=== PATIENT | male | born 2000 | race Caucasian/White ===

== ENCOUNTER 2018-08-28 15:12 | Emergency (ER) | payer OTHER ==
[2018-08-28 15:17] VITALS: BP 127/74
--- NOTE | 2018-08-28 17:00 | ED ---
Lower Extremity - HPI Summary HPI Summary: 18 year old male presents with left knee injury today. He states he twisted his left knee. He states he previously injured his left knee a couple weeks ago while snowboarding. He states he reinjured it today. States it feels like it coming give out. He has been using crutches to get around. pain is severe when tries to place weight on the area. He states that he has no numbness or tingling. He denies any previous fracture area. No ankle pain. No medical conditions. 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 - History of Current Complaint Chief Complaint: EDExtremityLower Stated Complaint: LT KNEE INJURY Time Seen by Provider: 08/28/18 16:28 Pain Intensity: 8 - Allergies/Home Medications Allergies/Adverse Reactions: Allergies Allergy/AdvReac Type Severity Reaction Status Date / Time No Known Allergies Allergy Verified 08/28/18 15:15 PMH/Surg Hx/FS Hx/Imm Hx Endocrine/Hematology History: Denies: Hx Anticoagulant Therapy Respiratory History: Denies: Hx Asthma Infectious Disease History: No Infectious Disease History: Denies: Traveled Outside the [place] in Last 30 Days - Family History Known Family History: Positive: Non-Contributory - Social History Substance Use Type: Reports: None Smoking Status (MU): Never Smoked Tobacco Review of Systems Negative: Fever Negative: Chest Pain Negative: Shortness Of Breath Positive: Myalgia - left knee pain All Other Systems Reviewed And Are Negative: Yes Physical Exam Triage Information Reviewed: Yes Vital Signs On Initial Exam: Initial Vitals Temp Pulse Resp BP Pulse Ox 97.4 F 99 16 127/74 96 08/28/18 15:15 08/28/18 15:15 08/28/18 15:15 08/28/18 15:15 08/28/18 15:15 Vital Signs Reviewed: Yes Appearance: Positive: Well-Appearing Skin: Positive: Warm, Dry Head/Face: Positive: Normal Head/Face Inspection Eyes: Positive: Normal, Conjunctiva Clear ENT: Positive: Pharynx normal Respiratory/Lung Sounds: Positive: Clear to Auscultation, Breath Sounds Present Cardiovascular: Positive: Normal, RRR Musculoskeletal: Positive: Limited @ - left knee, Other - neg anterior drawer, tenderness over medial aspect of knee, good pulses, neg ballotment, sensation grossly intact Neurological: Positive: Normal Psychiatric: Positive: Normal Diagnostics - Vital Signs Vital Signs Temp Pulse Resp BP Pulse Ox 08/28/18 15:15 97.4 F 99 16 127/74 96 - Laboratory Lab Statement: Any lab studies that have been ordered have been reviewed, and results considered in the medical decision making process. - Radiology knee Radiology Interpretation Completed By: Radiologist Summary of Radiographic Findings: IMPRESSION: No fracture of left knee is noted. Intramedullary carlos is in place. Lower Extremity Course/Dx - Course Course Of Treatment: 18 year old male presents with left knee injury today. He states he twisted his left knee. He states he previously injured his left knee a couple weeks ago while snowboarding. He states he reinjured it today. States it feels like it coming give out. He has been using crutches to get around. pain is severe when tries to place weight on the area. He states that he has no numbness or tingling. He denies any previous fracture area. No ankle pain. No medical conditions. On exam tenderness over the medial aspect of left knee. Neurovascular intact. X-ray normal. Gave the knee immobilizer as needed for comfort. Told to follow-up with orthopedic no improvement. Patient understands agrees plan. - Diagnoses Differential Diagnosis/HQI/PQRI: Positive: Fracture (Closed), Sprain, Strain Provider Diagnoses: Left knee pain Discharge - Sign-Out/Discharge Documenting (check all that apply): Patient Departure - Discharge Plan Condition: Good Disposition: HOME Patient Education Materials: Knee Pain (ED) Referrals: No Primary Care Phys,NOPCP [Primary Care Provider] - Whitney Granados MD [Medical Doctor] - Additional Instructions: Use immobilizer as needed Ice, elevate, Ibuprofen or Tylenol every 6 hours for pain Follow up with ortho if no improvement Return to ED if develop or any new or worsening symptoms - Billing Disposition and Condition Condition: GOOD Disposition: Home
== END 2018-08-28 17:22 | disposition home or self-care (01) ==
LOC: ED 15:12
DX: M25.562 Pain in left knee (principal); X50.0XXA Overexertion from strenuous movement or load, initial encounter; Y92.9 Unspecified place or not applicable
CPT/HCPCS: 99282

== ENCOUNTER 2018-11-19 05:43 | Day surgery (SDC) | payer OTHER ==
[~2018-11-19 05:43] MED LIST: Buffered Lidocaine 1% SYRIN* 1 ML/SYRINGE INTRADERM ONE; Lactated Ringers 1000 ML Bag* 1,000 ML IV SCH
[2018-11-19] MEDS ORDERED: Buffered Lidocaine 1% SYRIN* 1 ML/SYRINGE INTRADERM ONE (06:40)
[2018-11-19] MEDS ORDERED: ceFAZolin 2 GM in NS PREMIX(*) 2 GM/100 ML BAG IVPB ONE (06:40)
[2018-11-19] MEDS ORDERED: EPINEPHRINE 1 MG/ML 1 ML VIAL ONE (06:53)
[2018-11-19] MEDS ORDERED: Bupivacaine 0.5%* 50 ML VIAL ONE (06:53)
[2018-11-19] MEDS ORDERED: Midazolam* 1 MG/ML 2 ML VIAL (2 MG) ONE (07:28)
[2018-11-19] MEDS ORDERED: fentaNYL* 50 MCG/ML 2 ML VIAL (100 MCG VIAL) ONE ×4 (07:28→11:33)
[2018-11-19] MEDS ORDERED: Propofol* 10 MG/ML 20 ML BTL ONE (07:55)
[2018-11-19] MEDS ORDERED: Ondansetron INJ* 2 MG/ML VIAL ONE (07:55)
[2018-11-19] MEDS ORDERED: Dexamethasone IV* 4 MG/ML 1 ML (4 MG) ONE (07:55)
[2018-11-19] MEDS ORDERED: Lidocaine 2% PF * 5 ML VIAL ONE (07:55)
[2018-11-19] MEDS ORDERED: HYDROcodone/ACETAMIN 5-325 MG* 1 TAB PO PRN (08:33)
[2018-11-19] MEDS ORDERED: Naloxone* 0.4 MG/ML 1 ML VIAL IV PRN (08:33)
[2018-11-19] MEDS ORDERED: Acetaminophen TAB* 325 MG PO PRN (08:33)
[2018-11-19] MEDS ORDERED: PROCHLORPERAZINE INJ 5 MG/ML 2 ML VIAL IV PRN (08:33)
[2018-11-19] MEDS ORDERED: Ketorolac INJ* 30 MG/ML 1 ML VIAL IV PRN (08:33)
[2018-11-19] MEDS ORDERED: Phenylephrine 40 MCG/ML SYRINGE ONE (09:23)
[2018-11-19] MEDS ORDERED: Ketorolac INJ* 30 MG/ML 1 ML VIAL ONE (11:33)
[2018-11-19] MEDS ORDERED: HYDROmorphone INJ1* 1 MG/ML SYRINGE ONE (11:33)
[2018-11-19] MEDS ORDERED: HYDROcodone/ACETAMIN 5-325 MG* 1 TAB ONE (11:33)
[2018-11-19] MEDS: HYDROmorphone INJ1* 1 MG/ML SYRINGE IV PRN ×3 (11:37→12:07)
[2018-11-19] MEDS: fentaNYL* 50 MCG/ML 2 ML VIAL (100 MCG VIAL) IV PRN ×3 (11:37→12:07)
[2018-11-19 13:32] VITALS: BP 134/78
--- NOTE | 2018-11-20 08:03 | OP ---
OPERATIVE REPORT: DATE OF OPERATION: 11/19/18 DATE OF : 89 SURGEON: Dr. Daniel Rush. RN ANTE PARTUM: DANA Wilson. A physician advertising sales assistant was required for the length of procedure for help with positioning, instrumenta tion, retraction, knee manipulation, and closure. ANESTHESIOLOGIST: Dr. Toña Rosen. ANESTHESIA: General anesthesia. PRE-OP DIAGNOSES: 1. Left knee anterior cruciate ligament tear. 2. Left knee lateral meniscus tear. POST-OP DIAGNOSES: 1. Left knee anterior cruciate ligament tear. 2. Left knee lateral meniscus tear. OPERATIVE PROCEDURES: 1. Left knee arthroscopic ACL reconstruction with bone patellar bone autograft. 2. Left knee arthroscopic lateral meniscal repair using all-inside fixation. ANTIBIOTICS: Ancef 2 g IV. TOURNIQUET TIME: 134 minutes at 300 mmHg, left thigh tourniquet. Note that there was a 14-minute dr op of the tourniquet midway through this. SKIN TO SKIN TIME: 175 minutes. SPECIMEN: None. IMPLANTS: [employer] CYRUS biocomposite screws 9 x 23 mm. Two of these were used, one in the tibia and one in the femur. [employer] FAST-FIX 360 devices x2 used in the lateral meniscus. One conta iner of 5 cc of cancellous allograft bone chips were also utilized to fill in defects in the patella and tibial tubercle post harvest. IV FLUIDS: 2100 cc crystalloid. COMPLICATIONS: None. ESTIMATED BLOOD LOSS: Minimal. INDICATIONS FOR PROCEDURE: The patient is a 18-year-old man, is a college student, from [place], who injured his left knee first on 08/19/18 and then in October 2018. The patient then came and saw me in clinic after having had an MRI done in [place]. MRI showed ACL and lateral meniscus tears. His exam was consistent with this. We booked him for surgery. The patient went to physical therapy preoperat ively. We spoke about postoperative recovery at length. The patient's father came into town to help him recover for the first week postoperatively. Discussed risks and potential complications of surgery. DESCRIPTION OF PROCEDURE: In preoperative holding, the patient signed a written consent. Operative extremity was marked in preoperative holding. I discussed the use of cancellous allograft chips to b ackfill bony defects created with autograft harvest. The patient was taken back to the operating room, placed supine on operating room table. Sedated and intubated. Hair was shaved from the left knee. Tourniquet was placed about the proximal left thigh. The left l ower extremity was prepped and draped. Surgical time-out was performed. Esmarch applied, tourniquet elevated. A lateral post had been applied to the table prior to prep and drape. I made an anterolateral knee arthroscopy portal. Started diagnostic arthroscopy. There was some syno vitis anteriorly. Medial compartment showed no articular cartilage damage or meniscal tear. Patello femoral compartment showed no articular cartilage damage. Moved to the intercondylar notch, where AC L was clearly full- thickness torn proximally. Moved to the lateral compartment. Lateral compartmen t opened up slightly more than average. I suspect this was secondary to the patient's increased liga mentous laxity in general. The patient had a negative dial test and no posterolateral LCL injury not ed on imaging. I noted a tear in the lateral meniscus. It was not displaced, inside the substance o f the meniscus, oblique in shape. Meniscus was not significantly unstable. There was no clear tear at the meniscocapsular junction; however, there was a little bit of tearing close to the popliteal hi atus, which was a very small area of tear and there was the oblique tear within the substance. So, I was worried about the whole posterior horn being somewhat at risk. I decided to fix this tear in th e meniscus and to stabilize that lateral meniscus posterior horn. I next placed two FAST-FIX 360 all-inside suture device stitches in the posterior horn of the lateral meniscus. The first I placed from the medial portal, anteromedial portal that had been established earlier under direct visualization. I placed the second through the anterolateral portal. I probed t he meniscus and it was very stable. We next put together the [facility] Knee Positioner system. I converted the knee to 90 degrees of flexi on. I made an anterior midline longitudinal skin incision. Dissected down to paratenon. Incised vega t longitudinally. Reflected that off the patellar tendon. I used a double blade 10 mm knife to cut the middle third of the patellar tendon. Of note, prior to t hat, I measured the patellar tendon to be at least 38 mm in width. I then took my bone blocks using a small oscillating saw. The length of the proximal bone block through the patella was about 25 mm. Distally, the bone block was somewhere between 36 and 38 mm. The patellar tendon was closed with buried [id number] stitches using Ethibond 0 suture. The fransisca rniquet was then dropped. The tourniquet was dropped for a total of 14 minutes, I was told by an ass istant. On the back table, I prepped the graft. I removed fat. I contoured each of the bone blocks. I adiel ected bone removed from the bone blocks. I placed 1 hole through the proximal bone block and 2 throu gh the distal bone block. I placed FiberWire #5 stitches, one in the proximal bone block and 2 in th e distal bone block. I kept that graft under tension. I returned to the knee. I replaced the Esmarch and re-elevated the tourniquet. I returned to the in tercondylar notch. I removed stump of ACL. I did a small notchplasty given that the patient's inter condylar notch was rather capacious already. I identified the proximal posterior extent of the artic ular cartilage and marked that with Bovie or vapor device. Through a newly placed anteromedial knee arthroscopy portal, I used an awl to aleah the 1:30 clock position. Then, with the knee in approximately 110 degrees of flexion, I used the 1:30 clock position, but more importantly, the proximal edge of the posterior articular cartilage to determine the correct tunnel site. I used an 8 mm around the back guide and placed a Beath pin. I confirmed excellent position o f the Beath pin and overdrilled it with a 10 mm acorn reamer. I drilled to a depth of approximately 30 mm. I removed drill and Beath pin, shaved up detritus. I then returned to the tibia. I debrided some more ACL. I used an ACL guide set to 55 degrees. I p laced my pin central, from medial to lateral and at the posterior edge of the anterior horn of the la teral meniscus. It looked like a good position versus the PCL as well. Placed pin and then overdril led it with a 10 mm reamer. I removed pin and reamer. I placed passing stitch and then placed my graft. With the graft in place, I placed a nitinol wire a nd then taps and then a screw into the femur; screw was 9 x 23 mm CYRUS. The fit was extremely tig ht. The squeak could be heard from across the room or into the next room. Fully extended the knee. I placed a screw in the tibia with a posterior drawer applied to the knee. This also squeaked. I performed anterior drawer and Ankur maneuvers and there is 0 laxity. I also scoped the knee and found the graft to be well positioned around a variety of knee flexion angles. I exited the knee. I dropped the tourniquet. The tibial bone block was proud distally. This sometimes happens when I use a long tibial bone block such as this that was approximately 38 mm long. Something like 16 x 18 mm were exposed proud of the screw. I debrided this, moved it out with a rongeur and with the arthroscopic nataly. There was stil l at least 20 mm of bone block in contact with the CYRUS screws and a backup fixation was required. Irrigation. Closed arthroscopy portals with [id number] stitches using Vicryl 2.0 suture. I closed the parate non with simple and then running stitches using Vicryl 0 suture. Closed the subcutaneous tissue with buried simple stitches using Vicryl 2.0 suture. I closed the long longitudinal skin incision with a r unning stitch using nylon 3.0 suture. I closed the arthroscopy portals made at the start of the case with figure- of-eight stitches using nylon 3.0 suture. I closed the poke hole about the lateral dis asif thigh also with a simple skin stitch. Xeroform, 4x4s, ABD, sterile Webril. Then, an Fred bandage from foot to proximal thigh. Cooling unit . Knee brace. The patient was awakened, extubated, and brought to the PACU. DISPOSITION: The patient was given Percocet as needed for pain control, Keflex for 3 days for infect ion prophylaxis, and aspirin for 2 weeks for DVT prophylaxis. He will start physical therapy immedia tely. He will be nonweightbearing with crutches because of the meniscus repair. He will see me in 1 0 to 14 days postoperatively. A knee brace is locked in full extension. [id number]/[facility] #: [id number]
== END 2018-11-19 18:14 | disposition home or self-care (01) ==
LOC: OR 05:43
PROVIDERS: ATTEND Orthopaedic Surgery
DX: S83.512D Sprain of anterior cruciate ligament of left knee, subsequent encounter (principal); S83.282A Other tear of lateral meniscus, current injury, left knee, initial encounter; X50.1XXA Overexertion from prolonged static or awkward postures, initial encounter; Y93.23 Activity, snow (alpine) (downhill) skiing, snowboarding, sledding, tobogganing and snow tubing; Y92.838 Other recreation area as the place of occurrence of the external cause
CPT/HCPCS: C1776; J0690; J1100; J1170; J1885; J2250; J2405; J2704; J3010

== ENCOUNTER 2018-11-22 11:37 | Emergency (ER) | payer OTHER ==
--- OUTSIDE RECORDS SUMMARY | 2018-11-22 12:04 | XMS REPORT | Continuity of Care Document ---
:2000 External Reference #:[id number] Author Name Anabell Viramontes Care Team Providers Name Role Phone Patient's Choice Primary Care Physician Unavailable Payers Date Identification Numbers Payment Provider Subscriber Policy Number: [id number] [facility] Blake Franco PayID: [id number] [address] [place] [address] Advance Directives Description No Information Available Problems Description No Information Family History Description No Information Available Social History Type Date Description Comments Sex Unknown Lives With Roommate Occupation Student ETOH Use Never used alcohol Tobacco Use Start: Unknown Patient has never smoked Smoking Status Reviewed: 11/04/18 Patient has never smoked Exercise Type/Frequency Exercises regularly Allergies, Adverse Reactions, Alerts Description No Known Drug Allergies Medications Description No Active Medications Immunizations Description No Information Available Vital Signs Date Vital Result Comment 11/04/2018 9:02am Height 70.0 inches 5'10" Weight 167.00 lb BP Systolic 118 mmHg BP Diastolic 82 mmHg Pain Level 0 BMI (Body Mass Index) 24.0 kg/m2 10/28/2018 3:32pm Height 70.0 inches 5'10" Weight 167.00 lb BP Systolic 116 mmHg BP Diastolic 70 mmHg Pain Level 1 BMI (Body Mass Index) 24.0 kg/m2 Results Description No Information Available Procedures Description No Information Available Encounters Description No Information Available Plan of Treatment Future Appointment(s):11/27/2018 1:00 pm - Daniel Rush MD at [facility].11/19/2018 9:00 am - Daniel Rush MD at [facility].11/04/2018 - Daniel Rush, [id number] Sprain of anterior cruciate ligament of left knee, subsequenNew Therapy:Physical TherapyFollow up:Follow up: to [id number] Other tear of lateral meniscus, current injury, unspecified
--- OUTSIDE RECORDS SUMMARY | 2018-11-22 12:04 | XMS REPORT | Continuity of Care Document ---
:1998 External Reference #:[id number] Author Name Anuja Ornelas Care Team Providers Name Role Phone Patient's Choice Primary Care Physician Unavailable Payers Date Identification Numbers Payment Provider Subscriber Policy Number: [id number] [facility] Blake Franco PayID: [id number] [id number] [place] [address] Advance Directives Description No Information Available Problems Description No Information Family History Description No Information Available Social History Type Date Description Comments Sex Unknown Lives With Roommate Occupation Student ETOH Use Never used alcohol Tobacco Use Start: Unknown Patient has never smoked Smoking Status Reviewed: 10/28/18 Patient has never smoked Exercise Type/Frequency Exercises regularly Allergies, Adverse Reactions, Alerts Description No Known Drug Allergies Medications Description No Active Medications Immunizations Description No Information Available Vital Signs Date Vital Result Comment 10/28/2018 3:32pm Height 70.0 inches 5'10" Weight 167.00 lb BP Systolic 116 mmHg BP Diastolic 70 mmHg Pain Level 1 BMI (Body Mass Index) 24.0 kg/m2 Results Description No Information Available Procedures Description No Information Available Encounters Description No Information Available Plan of Treatment Future Appointment(s):11/04/2018 8:30 am - Daniel [facility] at [facility]10/28/2018 - Daniel Rush, [id number] Sprain of anterior cruciate ligament of left knee, initial eFollow up:Follow up: next week with Adri to discuss surgery [id number] Other tear of lateral meniscus, current injury, unspecified
[2018-11-22 13:02] LABS: ABS Basophils 0 10^3/ul (0-0.2); ABS Eosinophils 0 10^3/ul (0-0.6); ABS Lymphocytes 1.2 10^3/ul (1.0-4.8); ABS Monocytes 0.7 10^3/ul (0-0.8); ABS Neutrophils 5.3 10^3/ul (1.5-7.7); ABS Nucleated RBC 0 10^3/ul; Eosinophil % 0.3 %; Hematocrit 39 % (36-46); Hemoglobin 13.6 g/dL (14.0-18.0); Lymphocyte % 16.9 %; Mean Corpuscular HGB Conc 35 g/dL (31-36); Mean Corpuscular Hemoglobin 32 pg (27-31); Mean Corpuscular Volume 92 fL (80-94); Mean Platelet Volume 7.7 fL (7.4-10.4); Nucleated Red Blood Cells % 0; Platelet Count 168 10^3/uL (150-450); Red Blood Count 4.29 10^6 /uL (4.18-5.48); Red Cell Distribution Width 13 % (10.5-15); White Blood Count 7.3 10^3/uL (3.5-10.8)
[2018-11-22 13:19] LABS: Albumin 4.2 g/dL (3.2-5.2); Albumin/Globulin Ratio 1.4 (1-3); BUN/Creatinine Ratio 13.7 (8-20); C Reactive Protein 126.1 mg/L (<8.01); Calcium 9.6 mg/dL (8.6-10.3); EGFR African American 122.3 (>60); EGFR Non-African American 101.1 (>60); Globulin 2.9 g/dL (2-4); Total Bilirubin 0.6 mg/dL (0.2-1.0); Total Protein 7.1 g/dL (6.4-8.9)
[2018-11-22 13:21] LABS: Potassium 5.1 mmol/L (3.5-5.0)
[2018-11-22] MEDS ORDERED: oxyCODONE/Acetamin 5/325 MG* TAB PO ONE (14:12)
[2018-11-22 14:21] LABS: Erythrocyte Sed Rate 44 mm/Hr (0-14)
[2018-11-22 14:52] VITALS: BP 131/74
--- NOTE | 2018-11-22 15:12 | ED ---
Lower Extremity - HPI Summary HPI Summary: Patient is a 18-year-old male with a recent ACL/MCL repair [address] Dhaliwal presenting to the ED with left lower extremity swelling. He denies any fevers, sweats, chills. He is remained on Keflex 3 times daily since his surgery, with his last dose this morning. While he is endorsing swelling, he denies any worsening pain to the knee or lower extremity otherwise. He has been elevating the extremity, although less frequently than he showed he states. He continues to use the ice machine at home with good relief. No drainage from the area. - History of Current Complaint Chief Complaint: EDExtremityLower Stated Complaint: ACL SURGERY 3 DAYS AGO NOW SWELLING Time Seen by Provider: 11/22/18 12:17 Hx Obtained From: Patient Onset of Pain: Hours Onset/Duration: Hours Severity Initially: Moderate Severity Currently: Moderate Pain Intensity: 3 Pain Scale Used: 0-10 Numeric Timing: Constant Location: Is Discrete @ - left lower extremity Associated Signs And Symptoms: Positive: Swelling, Redness Aggravating Factor(s): Standing, Ambulation Alleviating Factor(s): Rest Able to Bear Weight: No - Risk Factors Gout Risk Factors: Negative DVT Risk Factors: Recent Surgery Septic Arthritis Risk Factor: Negative - Allergies/Home Medications Allergies/Adverse Reactions: Allergies Allergy/AdvReac Type Severity Reaction Status Date / Time No Known Allergies Allergy Verified 11/22/18 12:41 PMH/Surg Hx/FS Hx/Imm Hx Previously Healthy: Yes Endocrine/Hematology History: Denies: Hx Anticoagulant Therapy Respiratory History: Reports: Hx Asthma - as a younger child- no problems in last 4 years Sensory History: Reports: Hx Contacts or Glasses - glasses Denies: Hx Hearing Aid Opthamlomology History: Reports: Hx Contacts or Glasses - glasses - Cancer History Hx Chemotherapy: No - Surgical History Surgery Procedure, Year, and Place: bilat femoral corrective derotational osteotomy 2008. wisdom teeth removed Hx Anesthesia Reactions: No - Immunization History Hx Pertussis Vaccination: No Immunizations Up to Date: Yes Infectious Disease History: No Infectious Disease History: Denies: Traveled Outside the [place] in Last 30 Days - Family History Known Family History: Positive: Non-Contributory - Social History Occupation: Unemployed, Student Lives: With Family Alcohol Use: None Hx Substance Use: No Substance Use Type: Reports: None Hx Tobacco Use: No Smoking Status (MU): Never Smoked Tobacco Review of Systems Constitutional: Negative Negative: Fever, Chills, Fatigue, Skin Diaphoresis Negative: Palpitations, Chest Pain Negative: Shortness Of Breath, Cough Positive: Arthralgia, Edema - +3 pitting edema Positive: Rash - lower extremity warmth and redness Psychological: Normal All Other Systems Reviewed And Are Negative: Yes Physical Exam Triage Information Reviewed: Yes Vital Signs On Initial Exam: Initial Vitals Temp Pulse Resp BP Pulse Ox 98.8 F 142 18 131/78 96 11/22/18 11:53 11/22/18 11:53 11/22/18 11:53 11/22/18 11:53 11/22/18 11:53 Vital Signs Reviewed: Yes Appearance: Positive: Well-Appearing, Well-Nourished Skin: Positive: Warm, Skin Color Reflects Adequate Perfusion, Other - lower extremity erythema and warmth Head/Face: Positive: Normal Head/Face Inspection Eyes: Positive: EOMI, FLACA, Conjunctiva Clear Neck: Positive: Supple Respiratory/Lung Sounds: Positive: Clear to Auscultation, Breath Sounds Present Cardiovascular: Positive: RRR, Pulses are Symmetrical in both Upper and Lower Extremities Musculoskeletal: Positive: Pain @ - pain to left lower extremity Neurological: Positive: Sensory/Motor Intact, Alert, Oriented to Person Place, Time, Speech Normal Psychiatric: Positive: Affect/Mood Appropriate AVPU Assessment: Alert Diagnostics - Vital Signs Vital Signs Temp Pulse Resp BP Pulse Ox 11/22/18 14:52 98.8 F 82 16 131/74 95 11/22/18 14:21 84 131/74 98 11/22/18 14:19 18 11/22/18 14:01 90 98 11/22/18 13:51 90 114/68 96 11/22/18 13:21 87 109/63 98 11/22/18 13:01 94 98 11/22/18 12:51 94 119/66 96 11/22/18 12:49 97 98 11/22/18 12:21 95 128/78 98 11/22/18 11:53 98.8 F 142 18 131/78 96 - Laboratory Lab Results: Lab Results 11/22/18 11/22/18 Range/Units 12:48 12:48 WBC 7.3 (3.5-10.8) 10^3/uL RBC 4.29 (4.18-5.48) 10^6 /uL Hgb 13.6 L (14.0-18.0) g/dL Hct 39 (36-46) % MCV 92 (80-94) fL MCH 32 H (27-31) pg MCHC 35 (31-36) g/dL RDW 13 (10.5-15) % Plt Count 168 (150-450) 10^3/uL MPV 7.7 (7.4-10.4) fL Neut % (Auto) 72.7 % Lymph % (Auto) 16.9 % [place] % (Auto) 9.9 % Eos % (Auto) 0.3 % Baso % (Auto) 0.2 % Absolute Neuts (auto) 5.3 (1.5-7.7) 10^3/ul Absolute Lymphs (auto) 1.2 (1.0-4.8) 10^3/ul Absolute Monos (auto) 0.7 (0-0.8) 10^3/ul Absolute Eos (auto) 0 (0-0.6) 10^3/ul Absolute Basos (auto) 0 (0-0.2) 10^3/ul Absolute Nucleated RBC 0 10^3/ul Nucleated RBC % 0 ESR 44 H (0-14) mm/Hr Sodium 136 (135-145) mmol/L Potassium 5.1 H (3.5-5.0) mmol/L Chloride 101 (101-111) mmol/L Carbon Dioxide 32 (22-32) mmol/L Anion Gap 3 (2-11) mmol/L BUN 13 (6-24) mg/dL Creatinine 0.95 (0.67-1.17) mg/dL Est GFR ( Amer) 122.3 (>60) Est GFR (Non-Af Amer) 101.1 (>60) BUN/Creatinine Ratio 13.7 (8-20) Glucose 128 H (70-100) mg/dL Calcium 9.6 (8.6-10.3) mg/dL Total Bilirubin 0.60 (0.2-1.0) mg/dL AST 14 (13-39) U/L ALT 10 (7-52) U/L Alkaline Phosphatase 52 (34-104) U/L C-Reactive Protein 126.10 H (<8.01) mg/L Total Protein 7.1 (6.4-8.9) g/dL Albumin 4.2 (3.2-5.2) g/dL Globulin 2.9 (2-4) g/dL Albumin/Globulin Ratio 1.4 (1-3) Result Diagrams: 11/22/18 12:48 11/22/18 12:48 Lab Statement: Any lab studies that have been ordered have been reviewed, and results considered in the medical decision making process. Lower Extremity Course/Dx - Course Course Of Treatment: During this course treatment, the patient is evaluated for left lower extremity edema. On physical examination, patient has significant pitting edema at +3 to the left lower extremity BTK. After removing the knee immobilizer, there is noted to be erythema present, however at this point was not well demarcated. After approximately 30 minutes of knee immobilizer removal , there appears to be a well demarcated area just above the joint line of the ankle with erythema representing a possible hyperemia. Patient denies any feelings of compression to the lower extremity or feeling the knee immobilizer was too tight. Denies any fevers, sweats, chills and states he is otherwise at his baseline. There is no drainage from the area, incision is CDI. Ultrasound obtained of the lower extremity which shows no evidence of DVT. There is warmth and redness to the area with +3 pitting edema, no streaking up the leg. No erythema or worsening swelling to the knee. Pulses +2 intact bilaterally. Good cap refill. Denies any numbness or tingling. Discussed case with Dr. Rush who recommends furhtering a rx for keflex and will see in his clinic on saturday or saturday. Patient will continue his aspirin, ibuprofen and pain control as needed. He understands return if he develops any worsening or changing symptoms, including fevers, worsening swelling or erythema. Labs obtained which show an elevated CRP at 127, however normal white count. - Diagnoses Differential Diagnosis/HQI/PQRI: Positive: Bursitis, Septic Arthritis, Other - hyperemia, cellulitis, swelling, post surgical erythema Provider Diagnoses: Hyperemia - Physician Notifications Discussed Care Of Patient With: Daniel Rush Discharge - Sign-Out/Discharge Documenting (check all that apply): Patient Departure Patient Received Moderate/Deep Sedation with Procedure: No - Discharge Plan Condition: Stable Disposition: HOME Prescriptions: Cephalexin CAP* [Keflex CAP*] 500 mg PO TID #12 cap MDD 4 Referrals: Daniel Rush MD [Medical Doctor] - No Primary Care Phys,NOPCP [Primary Care Provider] - Additional Instructions: Please follow-up with Dr. Dhaliwal Call his office Saturday morning for an appointment As discussed, he may also text him if you are concerned with any worsening symptoms Elevate above the heart Ice to the knee as much as possible - Billing Disposition and Condition Condition: STABLE Disposition: Home
== END 2018-11-22 14:52 | disposition home or self-care (01) ==
LOC: ED 11:37
DX: R68.89 Other general symptoms and signs (principal)
CPT/HCPCS: 36415; 80053; 85025; 85652; 86140; 99283; A9270-GY